=== PATIENT | male | born 1965 | race Caucasian/White ===

== ENCOUNTER → 2016-08-01 | Outpatient (CLI) | payer BC ==
--- NOTE | 2016-08-01 08:31 | DIAGNOSTIC IMAGING REPORT ---
ABDOMINAL ULTRASOUND, RIGHT UPPER QUADRANT HISTORY: Elevated liver enzymes. COMPARISON: None. FINDINGS: Hepatic echogenicity is increased. This suggests fatty infiltration. Hypoechoic areas within the gallbladder fossa suggests fatty sparing. The pancreas is obscured due to overlying bowel gas. No gallstones are identified. There is no biliary ductal dilatation. There is no right hydronephrosis. IMPRESSION: 1. No gallstones or biliary ductal dilatation. 2. Fatty infiltration of the liver with suspected areas of sparing within the gallbladder fossa. 3. Study compromised by suboptimal penetration. Largely obscured pancreas. Electronically signed by: Evans Kaur M.D. 08/01/2016 8:30 AM Dictated Date/Time: 08/01/2016 8:22 AM
== END | disposition home or self-care (01) ==
LOC: C.ULTR 07:29
PROVIDERS: ATTEND Internal Medicine
DX: R74.8 Abnormal levels of other serum enzymes (principal)